=== PATIENT | male | born 2000 | race Caucasian/White ===

== ENCOUNTER 2024-05-21 10:28 | Emergency (ER) | payer OTHER ==
[~2024-05-21] VITALS: Wt 58.6 kg
[2024-05-21] MEDS ORDERED: PROBIOTIC1 EAC3 PO (10:40)
[2024-05-21 11:11] LABS: BASO # 0.02 K/mm3 (0.02-0.10); EOS # 0.14 K/mm3 (0.04-0.40); EOS % 1.1 % (0.0-4.0); HEMATOCRIT 46.5 % (42.0-52.0); HEMOGLOBIN 16.3 g/dL (13.5-18.0); LYMPH# 1.84 K/mm3 (1.50-4.00); MEAN CELL VOLUME 84 fl (78-100); MEAN CORPUSCULAR HEMOGLOBIN 29 pg (27-31); MEAN CORPUSCULAR HGB CONC 35 g/dL (33-37); MEAN PLATELET VOLUME 10.2 fl (7.4-10.4); MONO # 0.55 K/mm3 (0.20-0.80); NEU # 10.11 K/mm3 (1.40-6.50); PLATELET COUNT 192 K/mm3 (130-400); RED BLOOD COUNT 5.56 M/mm3 (4.20-5.60); RED CELL DISTRIBUTION WIDTH 11.7 % (11.5-14.5); WHITE BLOOD COUNT 12.7 K/mm3 (4.8-10.8)
[2024-05-21 11:14] LABS: ALBUMIN 4.7 g/dL (3.5-5.0)
[2024-05-21 11:15] LABS: CALCIUM 9.8 mg/dL (8.3-10.5)
[2024-05-21 11:17] LABS: TOTAL PROTEIN 7.5 g/dL (6.4-8.3)
[2024-05-21 11:18] LABS: TOTAL BILIRUBIN 1.4 mg/dL (0.2-1.2)
[2024-05-21] MEDS ORDERED: ZOFRAN ODT4 MG PO (12:14)
[2024-05-21 12:17] VITALS: BP 105/64
== END 2024-05-21 12:34 | disposition home or self-care (01) ==
LOC: ED 10:28
PROVIDERS: Family Medicine
DX: R11.2 Nausea with vomiting, unspecified (principal); R10.9 Unspecified abdominal pain; R68.83 Chills (without fever)
CPT/HCPCS: J0780; J7120